=== PATIENT | female | born 1985 | race Caucasian/White ===

== ENCOUNTER → 2016-12-27 | Outpatient (CLI) | payer OTHER ==
[~2016-12-27] MED LIST: APIX5TAB PO; BACT800T5 PO; BENZ100 PO; DIFL150T PO; GLIP10TA6 PO; GLUCTES27 TOP; LEVEMIR SQ; LISI-515 PO; METF1000 PO; PROV5TAB PO; insulin syringes SQ
[2016-12-27 13:25] LABS: AUTOMATED NEUTROPHIL # 8.6 TH/MM3 (1.8-7.7); BASOPHIL # 0.1 TH/MM3 (0-0.2); BASOPHIL % 0.7 % (0.0-2.0); EOSINOPHIL # 0.3 TH/MM3 (0-0.4); EOSINOPHIL % 2.1 % (0.0-4.0); HEMATOCRIT 41.4 % (35.0-46.0); HEMO FLAGS DIFF FINAL; LYMPH % 23.7 % (9.0-44.0); MEAN CELL VOLUME 83.9 FL (80.0-100.0); MEAN CORPUSCULAR HEMOGLOBIN 27.9 PG (27.0-34.0); MEAN CORPUSCULAR HGB CONC 33.2 % (32.0-36.0); NEUT % 67.5 % (16.0-70.0); PLATELET COUNT 306 TH/MM3 (150-450); RED BLOOD COUNT 4.94 MIL/MM3 (4.00-5.30); WHITE BLOOD COUNT 12.8 TH/MM3 (4.0-11.0)
== END ==
LOC: CLAB 13:03
PROVIDERS: ATTEND Family Medicine
DX: N92.1 Excessive and frequent menstruation with irregular cycle (principal)
CPT/HCPCS: 36415; 85025

== ENCOUNTER → 2016-12-30 | Outpatient (CLI) | payer OTHER ==
[~2016-12-30] MED LIST changes: -BACT800T5 PO; -BENZ100 PO; -DIFL150T PO
--- NOTE | 2016-12-30 16:43 | RADRPT ---
EXAM DATE/TIME: 12/30/2016 14:46 [facility] COMPARISON: No previous studies available for comparison. INDICATIONS : Vaginal bleeding. MEDICAL HISTORY : Hypercholesterolemia. Deep venous thrombosis. Diabetes mellitus type 2. Morbidly obese. SURGICAL HISTORY : Cyst taken off buttock. ENCOUNTER: Initial ACUITY: 2 months PAIN SCORE: 4/10 LOCATION: Bilateral pelvis MEASUREMENTS: UTERUS: 8.0 x 4.2 x 4.8 cm ENDOMETRIAL STRIPE: 10 mm RIGHT OVARY: 4.3 x 4.0 x 4.8 cm LEFT OVARY: 3.2 x 1.8 x 2.7 cm FINDINGS: The examination was extremely limited due to bowel gas and obesity. UTERUS: The myometrium has homogeneous echotexture without mass. RIGHT OVARY: The examination demonstrates a 2.7 x 3.2 x 3.4 cm cyst in the mid aspect of the right ovary. LEFT OVARY: Ovary contains no mass or significant cystic lesion. MISCELLANEOUS: No free fluid. CONCLUSION: 1. 2.7 x 3.2 x 3.4 cm ovarian cyst on the right. 2. The uterus and left ovary are normal appearance. Brandon Killian MD on December 30, 2016 at 16:39 Board Certified Radiologist. This report was verified electronically.
== END ==
LOC: HRAD 14:07
PROVIDERS: ATTEND Family Medicine
DX: N92.1 Excessive and frequent menstruation with irregular cycle (principal)
CPT/HCPCS: 76856

== ENCOUNTER → 2017-02-09 | Outpatient (CLI) | payer OTHER ==
[2017-02-09 11:57] LABS: HEMATOCRIT 39.6 % (35.0-46.0); MEAN CELL VOLUME 84.6 FL (80.0-100.0); MEAN CORPUSCULAR HGB CONC 31.9 % (32.0-36.0); PLATELET COUNT 332 TH/MM3 (150-450); RED BLOOD COUNT 4.68 MIL/MM3 (4.00-5.30); RED CELL DISTRIBUTION WIDTH 15.2 % (11.6-17.2); REVIEW FLAG FINAL; WHITE BLOOD COUNT 14.6 TH/MM3 (4.0-11.0)
== END ==
LOC: CLAB 11:36
PROVIDERS: ATTEND Family Medicine
DX: N92.1 Excessive and frequent menstruation with irregular cycle (principal)
CPT/HCPCS: 36415; 85027

== ENCOUNTER → 2017-07-03 | Outpatient (CLI) | payer OTHER ==
[~2017-07-03] MED LIST changes: +DIFL150T PO
[2017-07-03 12:28] LABS: BASOPHIL # 0.1 TH/MM3 (0-0.2); BASOPHIL % 0.6 % (0.0-2.0); EOSINOPHIL # 0.3 TH/MM3 (0-0.4); HEMATOCRIT 40.1 % (35.0-46.0); HEMO FLAGS DIFF FINAL; LYMPH % 25.6 % (9.0-44.0); LYMPHOCYTE # 2.8 TH/MM3 (1.0-4.8); MEAN CELL VOLUME 78.5 FL (80.0-100.0); MEAN CORPUSCULAR HGB CONC 30.6 % (32.0-36.0); MONO % 6.3 % (0.0-8.0); NEUT % 64.5 % (16.0-70.0); PLATELET COUNT 348 TH/MM3 (150-450); RED BLOOD COUNT 5.11 MIL/MM3 (4.00-5.30); RED CELL DISTRIBUTION WIDTH 17.7 % (11.6-17.2); WHITE BLOOD COUNT 10.9 TH/MM3 (4.0-11.0)
[2017-07-03 12:47] LABS: ANION GAP 10 MEQ/L (5-15); AST (GOT) 7 U/L (15-37); BICARBONATE 24.5 MEQ/L (21.0-32.0); BLOOD UREA NITROGEN 11 MG/DL (7-18); CHLORIDE 104 MEQ/L (98-107); GLOMERULAR FILTRATION RATE 105 ML/MIN (>89); GLUCOSE,FASTING 265 MG/DL (74-99); POTASSIUM 4.5 MEQ/L (3.5-5.1); SODIUM (NA) 138 MEQ/L (136-145)
[2017-07-03 12:48] LABS: ALT (GPT) 23 U/L (10-53)
[2017-07-03 12:50] LABS: ALKALINE PHOSPHATASE 56 U/L (45-117); HDL CHOLESTEROL 30.3 MG/DL (40.0-60.0); LDL CHOLESTEROL 84 MG/DL (0-99); TOTAL BILIRUBIN ADULT 0.2 MG/DL (0.2-1.0)
[2017-07-03 16:59] LABS: HEMOGLOBIN A1a 1.2 %; HEMOGLOBIN A1b 1.1 %; HEMOGLOBIN Ao 76.9 %; HEMOGLOBIN F 1.7 %; HEMOGLOBIN LA1C 3.1 %; HEMOGLOBIN P3 4.7 %
== END ==
LOC: CLAB 12:00
PROVIDERS: ATTEND Family Medicine
DX: N92.1 Excessive and frequent menstruation with irregular cycle (principal); E66.01 Morbid (severe) obesity due to excess calories; H11.32 Conjunctival hemorrhage, left eye; E11.65 Type 2 diabetes mellitus with hyperglycemia; Z91.19 Patient's noncompliance with other medical treatment and regimen
CPT/HCPCS: 36415; 80053; 80061; 83036; 85025

== ENCOUNTER 2017-11-25 00:10 | Emergency (ER) | payer SELFPAY ==
[~2017-11-25] VITALS: Ht 167.6 cm; Wt 156.6 kg
[~2017-11-25 00:10] MED LIST changes: -PROV5TAB PO
[2017-11-25 00:45] VITALS: BP 173/77; PULSE 103; RESP 20; TEMP 97.8
[2017-11-25 01:10] VITALS: BP 163/88; PULSE 103; RESP 20; O2SAT 95
[2017-11-25 02:28] VITALS: BP 158/89; PULSE 105; RESP 20; O2SAT 92
--- NOTE | 2017-11-25 02:43 | PD ---
HPI Chief Complaint: Cold / Flu Symptoms Time Seen by Provider: 02:28 Travel History International Travel<30 days: No Contact w/Intl Traveler<30days: No Traveled to known affect area: No History of Present Illness HPI The patient is a 32-year-old female who has had a cough and congestion for one week. The cough is productive of clear sputum. She states she had a fever for the first 2 days, low grade 101. She does smoke one half pack a day. She states there is no possibility of . She denies any chest pain. PFSH Past Medical History Arthritis: No Asthma: No Autoimmune Disease: No Blood Disorders: No Anxiety: Yes Depression: Yes Heart Rhythm Problems: No Cancer: No Cardiovascular Problems: Yes High Cholesterol: Yes Chemotherapy: No Chest Pain: Yes Congestive Heart Failure: No COPD: No Diabetes: Yes (TYPE 2) Patient Takes Glucophage: No Diminished Hearing: No Endocrine: No Gastrointestinal Disorders: No Genitourinary: No Hypertension: Yes Immune Disorder: No Musculoskeletal: No Neurologic: No Psychiatric: Yes Reproductive: No Respiratory: Yes (PE BILAT X2) Immunizations Current: No Myocardial Infarction: No Radiation Therapy: No (PT DENIES) Sleep Apnea: No (PT DENIES) Thyroid Disease: No Tetanus Vaccination: Unknown Influenza Vaccination: No ?: Not LMP: 11/07/17 : 1 : 1 Past Surgical History Abdominal Surgery: No AICD: No Arteriovenous Shunt: No Cardiac Surgery: No Ear Surgery: No Endocrine Surgery: No Eye Surgery: No Genitourinary Surgery: No Gynecologic Surgery: No Insulin Pump: No Joint Replacement: No Neurologic Surgery: No Oral Surgery: No Pacemaker: No Thoracic Surgery: No Other Surgery: Yes (CYST TAKEN OFF BUTTOCK) Social History Alcohol Use: No Tobacco Use: Yes (11/14 PPD) Substance Use: No Allergies-Medications (Allergen,Severity, Reaction): Coded Allergies: No Known Allergies (Verified Adverse Reaction, Unknown, 11/25/17) Reported Meds & Prescriptions Reported Meds & Active Scripts Active Lisinopril 20 Mg Tab 20 Mg PO DAILY Glipizide 10 Mg Tab 20 Mg PO BIDAC Take 30 minutes before a meal Diflucan (Fluconazole) 150 Mg Tab 150 Mg PO ONCE Eliquis (Apixaban) 5 Mg Tab 5 Mg PO BID Metformin (Metformin HCl) 1,000 Mg Tab 1,000 Mg PO BIDPC With meals Levemir Inj (Insulin Detemir) 1,000 unit/ 10 ML Vial 60 Units SQ BID 30 Days Do not mix with any other Insulin. Gloria Contour Next Blood Test Strips (Blood Glucose Test Strips) 1 Taylor Taylor 1 Strip TOP BID [insulin syringes] 1 Syringe SQ BID Review of Systems Except as stated in HPI: all other systems reviewed are Neg Physical Exam Narrative GENERAL: The patient is alert, obese, oriented 3 in no respiratory distress. Her vital signs show blood pressure 163/88 with heart rate of 103 but otherwise are normal. SKIN: Focused skin assessment warm/dry. HEAD: Atraumatic. Normocephalic. EYES: Pupils equal and round. No scleral icterus. No injection or drainage. ENT: No nasal bleeding or discharge. Mucous membranes pink and moist. NECK: Trachea midline. No JVD. CARDIOVASCULAR: Regular rate and rhythm. No murmur appreciated. RESPIRATORY: No accessory muscle use. Clear to auscultation. Breath sounds equal bilaterally. GASTROINTESTINAL: Abdomen soft, non-tender, nondistended. Hepatic and splenic margins not palpable. MUSCULOSKELETAL: No obvious deformities. No clubbing. No cyanosis. No edema. NEUROLOGICAL: Awake and alert. No obvious cranial nerve deficits. Motor grossly within normal limits. Normal speech. PSYCHIATRIC: Appropriate mood and affect; insight and judgment normal. Data Data Last Documented VS Vital Signs Date Time Temp Pulse Resp B/P (MAP) Pulse Ox O2 Delivery O2 Flow Rate FiO2 11/25/17 02:28 105 20 158/89 (112) 92 Room Air 11/25/17 00:45 97.8 Orders Orders Chest, Pa & Lat (11/25/17 02:35) Influenzae A/B Antigen (11/25/17 02:47) MDM Medical Decision Making Medical Screen Exam Complete: Yes Emergency Medical Condition: Yes Medical Record Reviewed: Yes Interpretation(s) The PA and lateral chest x-ray is normal. The influenza a/B antigen is negative for flu a and flu B antigen. Differential Diagnosis Viral upper respiratory infection, pneumonia, bronchitis, flu syndrome Narrative Course The patient appears to have a viral upper respiratory infection. Plan: She should discontinue smoking, drink plenty of liquids and get as much rest as she can. She should follow-up with a primary care physician next week. Additional Instructions: Follow-up with a primary care physician next week. Discontinue smoking and get as much rest as you can. Med/Other Pt SpecificInfo: Prescription(s) given Scripts Guaifenesin-Codeine Liq (Guaiatussin AC Liq) 100-10 Mg/5 Ml Syrp 10 ML PO Q6H Y for cough, #180 ML Prov: Miguelito Brown MD 11/25/17 Disposition: 01 DISCHARGE HOME Condition: Stable Miguelito Brown MD Nov 25, 2017 02:43
--- NOTE | 2017-11-25 02:58 | RADRPT ---
EXAM DATE/TIME: 11/25/2017 02:41 [facility] COMPARISON: No previous studies available for comparison. INDICATIONS : Cough. MEDICAL HISTORY : Hypercholesterolemia. Deep venous thrombosis. Diabetes mellitus type 2. Morbidly obese SURGICAL HISTORY : None. ENCOUNTER: Initial ACUITY: 1 week PAIN SCORE: 2/10 LOCATION: Bilateral chest FINDINGS: PA and lateral views of the chest demonstrate the lungs to be symmetrically aerated without evidence of mass, infiltrate or effusion. The cardiomediastinal contours are unremarkable. Osseous structure s are intact. CONCLUSION: Normal examination for a patient of this age. Dashawn Ortez MD on November 25, 2017 at 2:55 Board Certified Radiologist. This report was verified electronically.
[2017-11-25] MEDS ORDERED: GUAISYP5 PO (03:25)
[2017-11-25 03:30] VITALS: BP 170/81
== END 2017-11-25 03:39 | disposition home or self-care (01) ==
LOC: PHED 00:10
DX: J06.9 Acute upper respiratory infection, unspecified (principal); R05 Cough; F17.210 Nicotine dependence, cigarettes, uncomplicated; E78.00 Pure hypercholesterolemia, unspecified; E11.9 Type 2 diabetes mellitus without complications; I10 Essential (primary) hypertension; Z79.01 Long term (current) use of anticoagulants
CPT/HCPCS: 71046; 87804; 99284

== ENCOUNTER 2017-12-17 20:14 | Emergency (ER) | payer SELFPAY ==
[~2017-12-17] VITALS: Ht 167.6 cm; Wt 153.5 kg
[~2017-12-17 20:14] MED LIST changes: +GUAISYP5 PO
[2017-12-17 20:25] VITALS: BP 160/82; PULSE 109; RESP 18; TEMP 98.9; O2SAT 95
[2017-12-17] MEDS ORDERED: BACT800T5 PO (20:52)
[2017-12-17] MEDS ORDERED: CEPH-460 PO (20:52)
--- NOTE | 2017-12-17 20:53 | PD ---
HPI Chief Complaint: Skin Problem Time Seen by Provider: 20:39 Travel History International Travel<30 days: No Contact w/Intl Traveler<30days: No Traveled to known affect area: No History of Present Illness HPI This is a 32-year-old female here with abscess to the left lower abdomen 3 days. She denies fever or chills. Patient has a history of abscesses in the past. Symptom severity is moderate. No aggravating or alleviating factors. PFSH Past Medical History Hx Anticoagulant Therapy: No (suppose to be on but stoped taking) Arthritis: No Asthma: No Autoimmune Disease: No Blood Disorders: No Anxiety: Yes Depression: Yes Heart Rhythm Problems: No Cancer: No Cardiovascular Problems: Yes High Cholesterol: Yes Chemotherapy: No Chest Pain: Yes Congestive Heart Failure: No COPD: No Diabetes: Yes (TYPE 2) Patient Takes Glucophage: No Diminished Hearing: No Endocrine: No Gastrointestinal Disorders: No Genitourinary: No Hypertension: Yes Immune Disorder: No Musculoskeletal: No Neurologic: No Psychiatric: Yes Reproductive: No Respiratory: Yes (PE x2) Immunizations Current: No Myocardial Infarction: No Radiation Therapy: No (PT DENIES) Sleep Apnea: No (PT DENIES) Thyroid Disease: No Tetanus Vaccination: Unknown Influenza Vaccination: No ?: Not LMP: 2--18 : 1 : 1 Past Surgical History Abdominal Surgery: No AICD: No Arteriovenous Shunt: No Cardiac Surgery: No Ear Surgery: No Endocrine Surgery: No Eye Surgery: No Genitourinary Surgery: No Gynecologic Surgery: No Insulin Pump: No Joint Replacement: No Neurologic Surgery: No Oral Surgery: No Pacemaker: No Thoracic Surgery: No Other Surgery: Yes (CYST TAKEN OFF BUTTOCK) Social History Alcohol Use: No Tobacco Use: Yes (1/2 PPD) Substance Use: No Allergies-Medications (Allergen,Severity, Reaction): Coded Allergies: No Known Allergies (Verified Adverse Reaction, Unknown, 12/17/17) Reported Meds & Prescriptions Reported Meds & Active Scripts Active No Active Prescriptions or Reported Medications Review of Systems Except as stated in HPI: all other systems reviewed are Neg General / Constitutional: No: Fever Physical Exam Narrative GENERAL: Alert and well-appearing 32-year-old female SKIN: Warm and dry. 6 x 5 cm area to left lower abdomen of erythema and mild induration. Area has a central scab. No drainage. HEAD: Normocephalic. EYES: No injection or drainage. NECK: Supple CARDIOVASCULAR: Regular rate and rhythm without murmurs, gallops, or rubs. RESPIRATORY: Breath sounds equal bilaterally. No accessory muscle use. GASTROINTESTINAL: Abdomen soft, non-tender, nondistended. MUSCULOSKELETAL: No cyanosis, or edema. Data Data Last Documented VS Vital Signs Date Time Temp Pulse Resp B/P (MAP) Pulse Ox O2 Delivery O2 Flow Rate FiO2 12/17/17 20:25 98.9 109 18 160/82 (108) 95 MDM Medical Decision Making Medical Screen Exam Complete: Yes Emergency Medical Condition: Yes Differential Diagnosis Abscess, cellulitis, folliculitis Narrative Course 32-year-old female here with early abscess to the left lower abdomen. The area is indurated with central scab. No fluctuance. Incision and drainage was not warranted. She is nontoxic appearing. She'll be put on Bactrim and Keflex and instructed to apply warm compresses to the area. Diagnosis Primary Impression: Abscess Referrals: Primary Care Physician Additional Instructions: Apply warm compresses to the area several times per day. Follow-up with her primary doctor for recheck. Return if he developed acutely new or worsening symptoms Scripts Cephalexin (Keflex) 500 Mg Cap 500 MG PO Q6H for Infection for 10 Days, #40 CAP 0 Refills Prov: Yamel Lowe 12/17/17 Sulfamethoxazole-Trimethoprim (Bactrim DS) 800-160 Mg Tab 1 TAB PO BID for Infection, #20 TAB 0 Refills Prov: Yamel Lowe 12/17/17 Disposition: 01 DISCHARGE HOME Condition: Stable Yamel Lowe Dec 17, 2017 20:53
== END 2017-12-17 21:03 | disposition home or self-care (01) ==
LOC: PHEFT 20:14
DX: L02.211 Cutaneous abscess of abdominal wall (principal); F17.200 Nicotine dependence, unspecified, uncomplicated; F41.9 Anxiety disorder, unspecified; F32.9 Major depressive disorder, single episode, unspecified; E78.00 Pure hypercholesterolemia, unspecified; E11.9 Type 2 diabetes mellitus without complications; I10 Essential (primary) hypertension; Z86.711 Personal history of pulmonary embolism
CPT/HCPCS: 99283

== ENCOUNTER 2018-03-27 09:28 | Observation (INO) | payer SELFPAY ==
[2018-03-27] VITALS (7 sets, daily range): BP systolic 111–136; BP diastolic 56–83; PULSE 91–121; RESP 16–24; TEMP 97.8–98.6; O2SAT 95–100
[~2018-03-27] VITALS: Ht 167.6 cm; Wt 152.2 kg
[~2018-03-27 09:28] MED LIST changes: -APIX5TAB PO; +BACT800T5 PO; +CEPH-460 PO; -DIFL150T PO; -GLIP10TA6 PO; -GLUCTES27 TOP; -GUAISYP5 PO; -LEVEMIR SQ; -LISI-515 PO; -METF1000 PO; -insulin syringes SQ
[2018-03-27 10:55] LABS: AUTOMATED NEUTROPHIL # 13.1 TH/MM3 (1.8-7.7); BASOPHIL # 0.1 TH/MM3 (0-0.2); BASOPHIL % 0.6 % (0.0-2.0); EOSINOPHIL # 0.1 TH/MM3 (0-0.4); EOSINOPHIL % 0.6 % (0.0-4.0); HEMATOCRIT 46.3 % (35.0-46.0); HEMOGLOBIN 15.4 GM/DL (11.6-15.3); LYMPH % 18.6 % (9.0-44.0); LYMPHOCYTE # 3.3 TH/MM3 (1.0-4.8); MEAN CELL VOLUME 84.1 FL (80.0-100.0); MEAN CORPUSCULAR HGB CONC 33.3 % (32.0-36.0); MEAN PLATELET VOLUME 7.4 FL (7.0-11.0); MONO % 7.2 % (0.0-8.0); MONOCYTE # 1.3 TH/MM3 (0-0.9); PLATELET COUNT 271 TH/MM3 (150-450); RED CELL DISTRIBUTION WIDTH 13.9 % (11.6-17.2)
[2018-03-27 11:10] LABS: INTERNATIONAL NORMALIZED RATIO 1.1 RATIO; PROTHROMBIN TIME - PATIENT 10.9 SEC (9.8-11.6)
[2018-03-27 11:38] LABS: ALBUMIN 3.4 GM/DL (3.4-5.0); BLOOD UREA NITROGEN 10 MG/DL (7-18); CREATININE 0.78 MG/DL (0.50-1.00); GLOMERULAR FILTRATION RATE 85 ML/MIN (>89); GLUCOSE,RANDOM 369 MG/DL (74-106); TOTAL PROTEIN 7.6 GM/DL (6.4-8.2)
[2018-03-27 11:39] LABS: ALKALINE PHOSPHATASE 76 U/L (45-117); ALT (GPT) 21 U/L (10-53); AST (GOT) 6 U/L (15-37); BICARBONATE 29.4 MEQ/L (21.0-32.0); CALCIUM 9.2 MG/DL (8.5-10.1); CHLORIDE 99 MEQ/L (98-107); SODIUM (NA) 133 MEQ/L (136-145); TOTAL BILIRUBIN ADULT 0.6 MG/DL (0.2-1.0)
[2018-03-27] MEDS ORDERED: SODIUM CHLOR 0.9% 1000 ML INJ 1,000 ML IV ONE (12:45)
--- NOTE | 2018-03-27 12:55 | RADRPT ---
EXAM DATE/TIME: 03/27/2018 12:01 [facility] COMPARISON: No previous studies available for comparison. INDICATIONS : Soft tissue mass on back of head denies injury,swelling right lower head. RADIATION DOSE: 56.35 CTDIvol (mGy) MEDICAL HISTORY : Hypertension. Deep venous thrombosis. Diabetes SURGICAL HISTORY : None. ENCOUNTER: Initial ACUITY: 2 days PAIN SCALE: 8/10 LOCATION: cranial TECHNIQUE: Multiple contiguous axial images were obtained of the head. Using automated exposure control and adj ustment of the mA and/or kV according to patient size, radiation dose was kept as low as reasonably a chievable to obtain optimal diagnostic quality images. DICOM format image data is available electro nically for review and comparison. FINDINGS: CEREBRUM: The ventricles are normal for age. No evidence of midline shift, mass lesion, hemorrhage or acute in farction. No extra-axial fluid collections are seen. POSTERIOR FOSSA: The cerebellum and brainstem are intact. The 4th ventricle is midline. The cerebellopontine angle i s unremarkable. EXTRACRANIAL: Subcutaneous fat induration is identified posteriorly at the base of the skull there are no abnormal or organized fluid collections.. The visualized portion of the orbits is intact. SKULL: The calvaria is intact. No evidence of skull fracture. CONCLUSION: Subcutaneous fat induration at the base of the neck posteriorly which may represent an inflammatory p rocess. No evidence of acute intracranial process. Tomas Heck MD on March 27, 2018 at 12:51 Board Certified Radiologist. This report was verified electronically.
--- NOTE | 2018-03-27 12:59 | PD ---
HPI Chief Complaint: Lump, Cyst, Hernia Time Seen by Provider: 10:09 Travel History International Travel<30 days: No Contact w/Intl Traveler<30days: No Traveled to known affect area: No History of Present Illness HPI Patient presents to the emergency department complaint of swelling in the back of her head since yesterday morning. She denies trauma or hitting her head. She denies fever, chills, nausea, vomiting, vision change, numbness, tingling, rash. She reports headache and neck pain. History Past Medical History Influenza Vaccination: Yes LMP: 03/20/18 : 1 Social History Alcohol Use: No Tobacco Use: Yes (11/14 PPD) Allergies-Medications (Allergen,Severity, Reaction): Coded Allergies: No Known Allergies (Verified Adverse Reaction, Unknown, 03/27/18) Reported Meds & Prescriptions Reported Meds & Active Scripts Active No Active Prescriptions or Reported Medications Review of Systems Except as stated in HPI: all other systems reviewed are Neg Physical Exam Narrative GENERAL: No acute distress. SKIN: Focused skin assessment warm/dry. HEAD: Atraumatic. Normocephalic. EYES: Pupils equal and round. No scleral icterus. No injection or drainage. ENT: No nasal bleeding or discharge. Mucous membranes pink and moist. NECK: Trachea midline. No JVD. Supple full range of motion peer. Large mass right posterior neck-tender to palpation with surrounding erythema. CARDIOVASCULAR: Regular rate and rhythm. No murmur appreciated. RESPIRATORY: No accessory muscle use. Clear to auscultation. Breath sounds equal bilaterally. GASTROINTESTINAL: Abdomen soft, non-tender, obese. Hepatic and splenic margins not palpable. MUSCULOSKELETAL: No obvious deformities. No clubbing. No cyanosis. No edema. NEUROLOGICAL: Awake and alert. No obvious cranial nerve deficits. Motor grossly within normal limits. Normal speech. PSYCHIATRIC: Appropriate mood and affect; insight and judgment normal. Data Data Last Documented VS Vital Signs Date Time Temp Pulse Resp B/P (MAP) Pulse Ox O2 Delivery O2 Flow Rate FiO2 03/27/18 12:26 97.8 117 16 122/68 (86) 99 Room Air Orders Orders Complete Blood Count With Diff (03/27/18 10:15) Comprehensive Metabolic Panel (03/27/18 10:15) Prothrombin Time / Inr (Pt) (03/27/18 10:15) Act Partial Throm Time (Ptt) (03/27/18 10:15) Ct Soft Tiss Neck W Iv Cont (03/27/18 10:15) Ct Brain W/O Iv Contrast(Rout) (03/27/18 10:16) Sodium Chlor 0.9% 1000 Ml Inj (Ns 1000 M (03/27/18 12:45) Piperacil-Tazo 3.375 Gm Premix (Zosyn 3. (03/27/18 13:30) Vancomycin Inj (Vancomycin Inj) (03/27/18 13:30) Insulin Human Regular Inj (Novolin R Inj (03/27/18 13:30) Admit Order (Ed Use Only) (03/27/18 13:37) Labs Laboratory Tests Test 03/27/18 10:33 White Blood Count 18.0 TH/MM3 Red Blood Count 5.50 MIL/MM3 Hemoglobin 15.4 GM/DL Hematocrit 46.3 % Mean Corpuscular Volume 84.1 FL Mean Corpuscular Hemoglobin 28.0 PG Mean Corpuscular Hemoglobin Concent 33.3 % Red Cell Distribution Width 13.9 % Platelet Count 271 TH/MM3 Mean Platelet Volume 7.4 FL Neutrophils (%) (Auto) 73.0 % Lymphocytes (%) (Auto) 18.6 % Monocytes (%) (Auto) 7.2 % Eosinophils (%) (Auto) 0.6 % Basophils (%) (Auto) 0.6 % Neutrophils # (Auto) 13.1 TH/MM3 Lymphocytes # (Auto) 3.3 TH/MM3 Monocytes # (Auto) 1.3 TH/MM3 Eosinophils # (Auto) 0.1 TH/MM3 Basophils # (Auto) 0.1 TH/MM3 CBC Comment DIFF FINAL Differential Comment Prothrombin Time 10.9 SEC Prothromb Time International Ratio 1.1 RATIO Activated Partial Thromboplast Time 24.4 SEC Blood Urea Nitrogen 10 MG/DL Creatinine 0.78 MG/DL Random Glucose 369 MG/DL Total Protein 7.6 GM/DL Albumin 3.4 GM/DL Calcium Level 9.2 MG/DL Alkaline Phosphatase 76 U/L Aspartate Amino Transf (AST/SGOT) 6 U/L Alanine Aminotransferase (ALT/SGPT) 21 U/L Total Bilirubin 0.6 MG/DL Sodium Level 133 MEQ/L Potassium Level 4.3 MEQ/L Chloride Level 99 MEQ/L Carbon Dioxide Level 29.4 MEQ/L Anion Gap 5 MEQ/L Estimat Glomerular Filtration Rate 85 ML/MIN MDM Medical Decision Making Medical Screen Exam Complete: Yes Emergency Medical Condition: Yes Interpretation(s) Last Impressions Head CT 03/27/18 1016 Signed Impressions: Service Date/Time: Tuesday, March 27, 2018 12:01 - CONCLUSION: Subcutaneous fat induration at the base of the neck posteriorly which may represent an inflammatory process. No evidence of acute intracranial process. Tomas Heck MD Neck CT 03/27/18 1015 Signed Impressions: Service Date/Time: Tuesday, March 27, 2018 12:01 - CONCLUSION: Subcutaneous fat induration posteriorly on the right side of the neck with evidence of underlying reactive lymph nodes characteristic of cellulitis. No evidence of discrete abscess. Otherwise normal brain soft tissue structures of the neck. Tomas Heck MD Labs limited WBC, hemoglobin, hematocrit, glucose Differential Diagnosis Hematoma,abscess, lipoma, Narrative Course Patient presents to the emergency department with neck mass. Also states that sugars are difficult to control will check CBC, chemistry, coags, CT scan head and neck. Give IV fluids. 1326: Written for 1 g of vancomycin and 3.375 g Zosyn IV. Accu-Chek 318, will give 9 units insulin SQ. Diagnosis Primary Impression: Cellulitis Qualified Codes: L03.221 - Cellulitis of neck Additional Impression: Hyperglycemia Admitting Information Admitting Physician Requests: Admit Scripts No Active Prescriptions or Reported Meds Condition: Stable Coty Wood MD March 27, 2018 12:59
--- NOTE | 2018-03-27 13:06 | RADRPT ---
EXAM DATE/TIME: 03/27/2018 12:01 [facility] COMPARISON: No previous studies available for comparison. INDICATIONS : Mass on the back of head for two days,swelling right lower head IV CONTRAST: 61 cc Omnipaque 350 (iohexol) IV RADIATION DOSE: 31.56 CTDIvol (mGy) MEDICAL HISTORY : Hypertension. Deep venous thrombosis. Diabetes SURGICAL HISTORY : None. ENCOUNTER: Initial ACUITY: 2 days PAIN SCALE: 8/10 LOCATION: Right neck TECHNIQUE: Volumetric scanning of the neck was performed. Using automated exposure control and adjustment of th e mA and/or kV according to patient size, radiation dose was kept as low as reasonably achievable to obtain optimal diagnostic quality images. DICOM format image data is available electronically for r eview and comparison. FINDINGS: Subcutaneous fat induration is identified posteriorly in the neck extending from the base of the skul l to the base of the neck. Soft tissue nodules are identified within the fat characteristic of small lymph nodes. There is no evidence of mature or discrete fluid collections. NASOPHARYNX: The nasopharyngeal airway has a normal configuration. No mucosal thickening or mass is seen. OROPHARYNX: The intrinsic muscles of the tongue are symmetric. The tonsillar pillars are intact. The prevertebr al soft tissues are not thickened. LARYNX: The supraglottic, glottic, and infraglottic structures are intact. PARAPHARYNGEAL: The parapharyngeal space is intact. SALIVARY GLANDS: The parotid and submandibular glands are intact. LYMPH NODES: No enlarged or necrotic-appearing nodes. THYROID: Homogeneous enhancement without evidence of nodule. BONES: Unremarkable. CONCLUSION: Subcutaneous fat induration posteriorly on the right side of the neck with evidence of underlying claudine ctive lymph nodes characteristic of cellulitis. No evidence of discrete abscess. Otherwise normal brain soft tissue structures of the neck. Tomas Heck MD on March 27, 2018 at 13:01 Board Certified Radiologist. This report was verified electronically.
[2018-03-27] MEDS ORDERED: PIPERACIL-TAZO 3.375 GM PREMIX 50 ML IV ONE (13:30)
[2018-03-27] MEDS ORDERED: VANCOMYCIN INJ 1,000 MG in SODIUM CHLOR 0.9% 250 ML INJ 250 ML IV ONE (13:30)
[2018-03-27] MEDS ORDERED: INSULIN HUMAN REGULAR 1,000 UNITS/10 ML VIAL SQ ONE (13:30)
--- NOTE | 2018-03-27 13:48 | HHI.HP ---
[facility] Service Family Medicine Primary Care Physician No Primary Care Physician Admission Diagnosis hyperglycemia, cellulitis Diagnoses: International Travel<30 Days: No Contact w/Intl Traveler<30days: No Known Affected Area: No History of Present Illness Patient is a 32-year-old female with a past medical history of diabetes and pulmonary embolisms 2 that presented to the [place] ED with a chief complaint of neck pain and swelling 1 day duration. Patient states that she woke up yesterday morning with a bump on the back of her neck and by this morning it was very painful and felt warm. Patient states that she can turn her head to the left but not to the right due to pain. She did not go to work yesterday because she had a headache. She denies fever, chills, vision loss, blurry vision, ear pain, numbness and tingling down her arms. Her PCP was Dr. Gonzalez, who was managing her medications and treatment, but she stopped taking any medications for chronic conditions when the community clinic closed. (Oumou Garcia MD R2) Review of Systems Constitutional: DENIES: Fever, Chills, Dizziness, Change in appetite Eyes: DENIES: Blurred vision, Eye pain, Vision loss, Double Vision Ears, nose, mouth, throat: DENIES: Throat pain, Ear Pain, Sinus Pain Respiratory: DENIES: Cough, Shortness of breath Cardiovascular: DENIES: Chest pain, Palpitations Gastrointestinal: DENIES: Constipation, Diarrhea, Nausea, Vomiting Genitourinary: DENIES: Dysuria, Vaginal discharge Musculoskeletal: COMPLAINS OF: Neck pain, DENIES: Joint pain, Back pain Integumentary: DENIES: Pruritus, Rash Neurologic: COMPLAINS OF: Headache, DENIES: Paresthesias Psychiatric: DENIES: Anxiety, Confusion, Mood changes, Depression (Oumou Garcia MD R2) Past Family Social History Past Medical History -Type 2 diabetes diagnosed when she was hospitalized for PE at [facility] in 2010. * She was started on metformin and was eventually put on insulin but she did not think that it helped control her sugars and she started having reactions at the injection sites on her leg and stomach. -Hypertension * Was on lisinopril but she stopped taking it -Pulmonary embolism 2, first in 2010 when she was 25 years old and the second in 2013 * Patient was on Eliquis but stopped taking it when the community clinic closed * She has never been worked up for a bleeding/clotting disorder. Past Surgical History -Pilonidal cyst outpatient surgery in 2006 Reported Medications Reported Meds & Active Scripts Active No Active Prescriptions or Reported Medications (Oumou Garcia MD R2) Allergies: Coded Allergies: No Known Allergies (Verified Adverse Reaction, Unknown, 03/27/18) Family History -Maternal grandmother had a myocardial infarction/CABG -Maternal grandfather had multiple strokes -No family history of diabetes or hypertension -No family history of blood clots/bleeding disorder Social History -Has smoked a half pack to a pack a day 18 years -Denies alcohol use -Denies illicit drug use -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 SKIN: No rashes. Cool and dry. See neck exam below. HEAD: Atraumatic. Normocephalic. No temporal or scalp tenderness. NECK: Right posterior neck mass measuring 11 cm x 7.5 cm with a 0.3 cm black eschar in the center, exquisitely tender to palpation. Patient unable to move neck to the right due to pain. EYES: Pupils equal round and reactive. Extraocular motions intact. No scleral icterus. No injection or drainage. ENT: Nose without bleeding, purulent drainage or septal hematoma. Throat without erythema, tonsillar hypertrophy or exudate. Uvula midline. Airway patent. NECK: Trachea midline. No JVD or lymphadenopathy. Supple, nontender, no meningeal signs. CARDIOVASCULAR: Regular rate and rhythm without murmurs, gallops, or rubs. RESPIRATORY: Clear to auscultation. Breath sounds equal bilaterally. No wheezes , rales, or rhonchi. GASTROINTESTINAL: Abdomen soft, non-tender, obese, nondistended. No guarding. MUSCULOSKELETAL: Extremities without clubbing, cyanosis, or edema. No joint tenderness, effusion, or edema noted. No calf tenderness. NEUROLOGICAL: Awake and alert. Cranial nerves II through XII intact. Motor and sensory grossly within normal limits. Five out of 5 muscle strength in all muscle groups. Normal speech. Laboratory Laboratory Tests Test 03/27/18 10:33 White Blood Count 18.0 Red Blood Count 5.50 Hemoglobin 15.4 Hematocrit 46.3 Mean Corpuscular Volume 84.1 Mean Corpuscular Hemoglobin 28.0 Mean Corpuscular Hemoglobin Concent 33.3 Red Cell Distribution Width 13.9 Platelet Count 271 Mean Platelet Volume 7.4 Neutrophils (%) (Auto) 73.0 Lymphocytes (%) (Auto) 18.6 Monocytes (%) (Auto) 7.2 Eosinophils (%) (Auto) 0.6 Basophils (%) (Auto) 0.6 Neutrophils # (Auto) 13.1 Lymphocytes # (Auto) 3.3 Monocytes # (Auto) 1.3 Eosinophils # (Auto) 0.1 Basophils # (Auto) 0.1 CBC Comment DIFF FINAL Differential Comment Prothrombin Time 10.9 Prothromb Time International Ratio 1.1 Activated Partial Thromboplast Time 24.4 Blood Urea Nitrogen 10 Creatinine 0.78 Random Glucose 369 Total Protein 7.6 Albumin 3.4 Calcium Level 9.2 Alkaline Phosphatase 76 Aspartate Amino Transf (AST/SGOT) 6 Alanine Aminotransferase (ALT/SGPT) 21 Total Bilirubin 0.6 Sodium Level 133 Potassium Level 4.3 Chloride Level 99 Carbon Dioxide Level 29.4 Anion Gap 5 Estimat Glomerular Filtration Rate 85 (Eko,Oumou GUALLPA R2) Result Diagram: 03/27/18 1033 03/27/18 1033 Imaging Last Impressions Head CT 03/27/18 1016 Signed Impressions: Service Date/Time: Tuesday, March 27, 2018 12:01 - CONCLUSION: Subcutaneous fat induration at the base of the neck posteriorly which may represent an inflammatory process. No evidence of acute intracranial process. Tomas Heck MD Neck CT 03/27/18 1015 Signed Impressions: Service Date/Time: Tuesday, March 27, 2018 12:01 - CONCLUSION: Subcutaneous fat induration posteriorly on the right side of the neck with evidence of underlying reactive lymph nodes characteristic of cellulitis. No evidence of discrete abscess. Otherwise normal brain soft tissue structures of the neck. Tomas Heck MD Course In the ED, CT head and CT neck with performed which showed subcutaneous fat induration posteriorly on the right side with evidence of underlying reactive lymph nodes characteristic of cellulitis which may represent an inflammatory process. Patient was found to have an elevated white count and tachycardia. She was given 1 g of vancomycin and 3.375 g of Zosyn IV. Patient also received 1 L normal saline bolus in the ED. Accu-Chek was 318 and she was given 9 units of subcu regular insulin. (Oumou Garcia MD R2) Septic Shock Reassessment Septic shock perfusion: reassessment completed (Oumou Garcia MD R2) Caprini VTE Risk Assessment Caprini VTE Risk Assessment: No/Low Risk (score <= 1) (Oumou Garcia MD R2) Assessment and Plan Assessment and Plan Patient is a 32-year-old female admitted with right neck soft tissue swelling concerning for cellulitis. CT neck was performed with no abscess formation identified. She met sepsis criteria on admission with elevated white blood cell count and tachycardia with an identifiable source. Patient will be admitted on observation for management with IV antibiotics and fluids. Code Status Full code -Patient designated her sister and mom as her healthcare surrogates Discussed Condition With ED physician, Dr. Wood Family medicine attending, Dr. Fabian (Oumou Garcia MD R2) Problem List: (1) Sepsis due to cellulitis ICD Codes: L03.90 - Cellulitis, unspecified; A41.9 - Sepsis, unspecified organism Plan: Patient met sepsis criteria on admission with elevated WBC of 18 and tachycardia up to 121 with a known cellulitis source. -Afebrile on admission -Lactic acid pending -Blood cultures pending -Urinalysis with reflex culture pending PLAN -Continue Zosyn 3.375 g every 6 IV -Continue vancomycin 1.5 mg every 12 IV with pharmacy to assist with dosing -Continue normal saline at 200 mL per hour (2) Hyponatremia ICD Codes: E87.1 - Hypo-osmolality and hyponatremia Plan: -Sodium 133 on admission -Most likely hypovolemic -Currently on IV fluids, will monitor with repeat BMP in the a.m. -Order urine and serum osmolality if hyponatremia does not resolve (3) Poorly controlled diabetes mellitus ICD Codes: E11.65 - Type 2 diabetes mellitus with hyperglycemia Status: Chronic Plan: -Serum glucose 369 on BMP -Accu-Chek 318 -Received 9 units of regular insulin in the ED -Continue Accu-Cheks with sliding scale insulin -Start Levemir 5 mg subcu twice daily -Hemoglobin A1c pending -Lipid panel pending -Start lisinopril 5 mg p.o. daily (4) HTN (hypertension) ICD Codes: I10 - Essential (primary) hypertension Status: Chronic Plan: -Patient reports history of hypertension -Currently normotensive -Start lisinopril 5 mg p.o. daily due to diabetes (5) Smoking greater than 10 pack years ICD Codes: F17.210 - Nicotine dependence, cigarettes, uncomplicated Status: Chronic Plan: -Nicotine Patch 7mg, remove HS -Encourage to quit (6) FEN/DVT PPX/GI PPX/Nursing Orders Plan: Fluids: NS @ 200 mls/hr IV Electrolytes: Will monitor and replace as needed Nutrition: Diabetic diet, 2200 ADA DVT Prophylaxis: Bilateral SCDs, Lovenox 40mg daily GI Prophylaxis: None required Constipation prophylaxis: Pericolace 1 tab PO BID PRN Medications Tylenol 650 mg by mouth every 4 hours when necessary pain 1-10 or temperature greater than 100.4F Reglan 5 mg IV push every 6 hours when necessary nausea vomiting Percocet 325-5 mg 1 tab by mouth every 6 hours when necessary pain 5-7 Percocet 325-10 mg 1 tab by mouth every 6 hours when necessary pain 8-10 Vasotec 1.25 mg IV Q6h PRN SBP greater than 170 or DBP greater than 100 Ambien 10mg PO HS PRN Insomnia -Vitals Q4h -Monitor I's and O's -Activity OOB ad corina -Case management consult to assist with discharge disposition Disposition: Patient clearly stated that she did not want to stay in the hospital. Possible discharge tomorrow pending improvement in swelling on antibiotics. Patient will need case management assistance with procuring antibiotics and setting up primary care. (EkoOumou MD R2) Problem List: (1) Sepsis due to cellulitis ICD Codes: L03.90 - Cellulitis, unspecified; A41.9 - Sepsis, unspecified organism Plan: Patient met sepsis criteria on admission with elevated WBC of 18 and tachycardia up to 121 with a known cellulitis source. -Afebrile on admission -Lactic acid pending -Blood cultures pending -Urinalysis with reflex culture pending PLAN -Continue Zosyn 3.375 g every 6 IV -Continue vancomycin 1.5 mg every 12 IV with pharmacy to assist with dosing -Continue normal saline at 200 mL per hour (2) Hyponatremia ICD Codes: E87.1 - Hypo-osmolality and hyponatremia Plan: -Sodium 133 on admission -Most likely hypovolemic -Currently on IV fluids, will monitor with repeat BMP in the a.m. -Order urine and serum osmolality if hyponatremia does not resolve (3) Poorly controlled diabetes mellitus ICD Codes: E11.65 - Type 2 diabetes mellitus with hyperglycemia Status: Chronic Plan: -Serum glucose 369 on BMP -Accu-Chek 318 -Received 9 units of regular insulin in the ED -Continue Accu-Cheks with sliding scale insulin -Start Levemir 5 mg subcu twice daily -Hemoglobin A1c pending -Lipid panel pending -Start lisinopril 5 mg p.o. daily (4) HTN (hypertension) ICD Codes: I10 - Essential (primary) hypertension Status: Chronic Plan: -Patient reports history of hypertension -Currently normotensive -Start lisinopril 5 mg p.o. daily due to diabetes (5) Smoking greater than 10 pack years ICD Codes: F17.210 - Nicotine dependence, cigarettes, uncomplicated Status: Chronic Plan: -Nicotine Patch 7mg, remove HS -Encourage to quit (6) FEN/DVT PPX/GI PPX/Nursing Orders Plan: Fluids: NS @ 200 mls/hr IV Electrolytes: Will monitor and replace as needed Nutrition: Diabetic diet, 2200 ADA DVT Prophylaxis: Bilateral SCDs, Lovenox 40mg daily GI Prophylaxis: None required Constipation prophylaxis: Pericolace 1 tab PO BID PRN Medications Tylenol 650 mg by mouth every 4 hours when necessary pain 1-10 or temperature greater than 100.4F Reglan 5 mg IV push every 6 hours when necessary nausea vomiting Percocet 325-5 mg 1 tab by mouth every 6 hours when necessary pain 5-7 Percocet 325-10 mg 1 tab by mouth every 6 hours when necessary pain 8-10 Vasotec 1.25 mg IV Q6h PRN SBP greater than 170 or DBP greater than 100 Ambien 10mg PO HS PRN Insomnia -Vitals Q4h -Monitor I's and O's -Activity OOB ad corina -Case management consult to assist with discharge disposition Disposition: Patient clearly stated that she did not want to stay in the hospital. Possible discharge tomorrow pending improvement in swelling on antibiotics. Patient will need case management assistance with procuring antibiotics and setting up primary care. Patient has a long history of noncompliance in the past, from reviewing her medical records. See the residents documentation for details. I saw and evaluated the patient regarding the [place] portions of this evaluation and agree with the residents findings and plans as written. Parts of this note were created using [employer] voice recognition software program. While efforts were made to correct any mistakes made by this software, some mistakes, errors, and omissions may remain in the final note that were not caught when the note was originally created. Plan of care was discussed and agreed upon with the patient as specifically documented in the above note. An opportunity to ask questions with explanation was provided. Patient voiced understanding on all information reviewed and discussed. (Arsi Fabian MD) Oumou Garcia MD R2 March 27, 2018 13:48 Aris Fabian MD March 28, 2018 12:51
[2018-03-27] MEDS ORDERED: DEXTROSE 50% IN WATER 50 ML VIAL(D50) IV PUSH PRN (15:00)
[2018-03-27] MEDS ORDERED: METOCLOPRAMIDE HCL 10 MG/2 ML VIAL IV PUSH PRN (15:00)
[2018-03-27] MEDS ORDERED: GLUCAGON 1 MG/ML VIAL OTHER PRN (15:00)
[2018-03-27] MEDS ORDERED: SODIUM CHLORIDE 0.9% FLUSH 10 ML FLUSH IV FLUSH PRN (15:00)
[2018-03-27] MEDS ORDERED: Vancomycin Consult Pharmacy 1 EA OTHER SCH (15:00)
[2018-03-27] MEDS ORDERED: NALOXONE HCL 0.4 MG/ML AMP IV PUSH PRN (15:00)
[2018-03-27] MEDS: SODIUM CHLOR 0.9% 1000 ML INJ 1,000 ML IV SCH ×2 (15:35→21:25)
[2018-03-27] MEDS: NICOTINE 7 MG/24 HR PATCH T-DERMAL SCH (15:44)
[2018-03-27] MEDS ORDERED: oxyCODONE/ACETAMINOPHEN 5 MG/325 MG TAB PO PRN (15:45)
[2018-03-27] MEDS ORDERED: oxyCODONE/ACETAMINOPHEN 10 MG/325 MG TAB PO PRN (15:45)
[2018-03-27] MEDS ORDERED: ENOXAPARIN SODIUM 40 MG/0.4 ML SYRINGE SQ SCH (16:00)
[2018-03-27] MEDS ORDERED: ZOLPIDEM TARTRATE 5 MG TAB PO PRN (18:00)
[2018-03-27] MEDS: INSULIN ASPART SUPPLEMENTAL SCALE SQ SCH ×2 (18:16→21:26)
[2018-03-27] MEDS: PIPERACIL-TAZO 3.375 GM PREMIX 50 ML IV SCH (18:16)
[2018-03-27 18:52] LABS: HEMOGLOBIN A1C 12.4 % (4.3-6.0)
[2018-03-27] MEDS ORDERED: LORazepam 0.5 MG TAB PO ONE (19:30)
[2018-03-27] MEDS ORDERED: ENALAPRILAT 1.25 MG/ML VIAL IV PUSH PRN (19:30)
[2018-03-27 19:37] LABS: BILIRUBIN, URINE NEG (NEG); BLOOD, URINE NEG (NEG); GLUCOSE,URINE 1000 mg/dL (NEG); KETONE, URINE 10 mg/dL (NEG); NITRITE,URINE NEG (NEG); PH, URINE 5.5 (5.0-8.5); SQUAMOUS EPITHELIAL CELL URINE <1 /hpf (0-5); URINE COLOR LIGHT-YELLOW (YELLW/STRAW); URINE LEUKOCYTE ESTERASE NEG (NEG)
[2018-03-27 20:03] LABS: CHOLESTEROL/ HDL RATIO 4.14 RATIO; HDL CHOLESTEROL 36.7 MG/DL (40.0-60.0)
[2018-03-27] MEDS: SODIUM CHLORIDE 0.9% FLUSH 10 ML FLUSH IV FLUSH SCH (21:00)
[2018-03-27] MEDS ORDERED: REMOVE OLD PATCH T-DERMAL SCH (21:00)
[2018-03-27] MEDS: DOCUSATE SODIUM 50 MG/SENNA 8.6 MG TAB PO SCH (21:00)
[2018-03-27] MEDS: VANCOMYCIN INJ 2,500 MG in SODIUM CHLORID 0.9% 500 ML INJ 500 ML IV SCH (21:25)
[2018-03-27] MEDS: ACETAMINOPHEN 325 MG TAB PO PRN (21:28)
--- NOTE | 2018-03-28 00:34 | PD.AMA ---
Against Medical Advice Note Diagnosis: (1) Cellulitis Discharge Disposition: Against Medical Advice Pt Condition on Discharge: Stable AMA Statement Patient Gypsy Roman has decided to leave the hospital against medical advice. This patient has the capacity to refuse care and understands the risks of leaving, including permanent disability and/or , and has had an opportunity to ask questions about her condition. The patient has been informed that she may return for care at any time, and follow up has been advised. Courtney Mandujano MD R1 March 28, 2018 00:34
[2018-03-28] MEDS ORDERED: LORazepam 1 MG TAB PO ONE (00:45)
[2018-03-28] MEDS: PIPERACIL-TAZO 3.375 GM PREMIX 50 ML IV SCH ×3 (01:20→12:34)
[2018-03-28] MEDS ORDERED: VANCOMYCIN INJ 1,500 MG in SODIUM CHLORID 0.9% 500 ML INJ 500 ML IV SCH (02:00)
[2018-03-28 04:00] VITALS: BP 107/57; PULSE 80; RESP 18; TEMP 98.2; O2SAT 96
[2018-03-28] MEDS: SODIUM CHLOR 0.9% 1000 ML INJ 1,000 ML IV SCH ×2 (05:55→06:08)
[2018-03-28] MEDS: ACETAMINOPHEN 325 MG TAB PO PRN ×2 (06:07→12:52)
[2018-03-28 07:04] LABS: AUTOMATED NEUTROPHIL # 7.7 TH/MM3 (1.8-7.7); BASOPHIL # 0.1 TH/MM3 (0-0.2); BASOPHIL % 0.6 % (0.0-2.0); EOSINOPHIL # 0.3 TH/MM3 (0-0.4); EOSINOPHIL % 2.4 % (0.0-4.0); HEMATOCRIT 40.4 % (35.0-46.0); HEMOGLOBIN 13.5 GM/DL (11.6-15.3); LYMPH % 20.7 % (9.0-44.0); LYMPHOCYTE # 2.3 TH/MM3 (1.0-4.8); MEAN CORPUSCULAR HGB CONC 33.3 % (32.0-36.0); MEAN PLATELET VOLUME 7.6 FL (7.0-11.0); MONO % 7.4 % (0.0-8.0); MONOCYTE # 0.8 TH/MM3 (0-0.9); NEUT % 68.9 % (16.0-70.0); PLATELET COUNT 227 TH/MM3 (150-450); RED BLOOD COUNT 4.81 MIL/MM3 (4.00-5.30); RED CELL DISTRIBUTION WIDTH 13.7 % (11.6-17.2); WHITE BLOOD COUNT 11.2 TH/MM3 (4.0-11.0)
[2018-03-28 07:36] LABS: ALBUMIN 2.8 GM/DL (3.4-5.0); ALT (GPT) 18 U/L (10-53); AST (GOT) 8 U/L (15-37); BICARBONATE 25.6 MEQ/L (21.0-32.0); CALCIUM 8.2 MG/DL (8.5-10.1); CHLORIDE 103 MEQ/L (98-107); CREATININE 0.46 MG/DL (0.50-1.00); GLOMERULAR FILTRATION RATE 156 ML/MIN (>89); GLUCOSE,RANDOM 226 MG/DL (74-106); SODIUM (NA) 138 MEQ/L (136-145)
[2018-03-28 07:40] LABS: ALKALINE PHOSPHATASE 63 U/L (45-117); BLOOD UREA NITROGEN 9 MG/DL (7-18); TOTAL BILIRUBIN ADULT 0.4 MG/DL (0.2-1.0); TOTAL PROTEIN 6.3 GM/DL (6.4-8.2)
[2018-03-28 07:49] VITALS: BP 141/69; PULSE 77; RESP 22; TEMP 97.8; O2SAT 95
[2018-03-28] MEDS: NICOTINE 7 MG/24 HR PATCH T-DERMAL SCH (08:21)
[2018-03-28] MEDS: VANCOMYCIN INJ 2,500 MG in SODIUM CHLORID 0.9% 500 ML INJ 500 ML IV SCH (08:21)
[2018-03-28] MEDS: SODIUM CHLORIDE 0.9% FLUSH 10 ML FLUSH IV FLUSH SCH (08:22)
[2018-03-28] MEDS: DOCUSATE SODIUM 50 MG/SENNA 8.6 MG TAB PO SCH (08:22)
[2018-03-28] MEDS ORDERED: INSULIN DETEMIR 100 UNITS/ML VIAL SQ SCH (09:00)
[2018-03-28] MEDS ORDERED: LISINOPRIL 5 MG TAB PO SCH (09:00)
[2018-03-28] MEDS: INSULIN ASPART SUPPLEMENTAL SCALE SQ SCH ×2 (09:30→13:11)
--- NOTE | 2018-03-28 11:00 | RADRPT ---
EXAM DATE/TIME: 03/28/2018 10:06 [facility] COMPARISON: CT SOFT TISSUE NECK W CONTRAST, March 27, 2018, 12:01. INDICATIONS : Right mastoid abscess. MEDICAL HISTORY : Hypercholesterolemia. Hypertension. Deep venous thrombosis. Diabetes. Pulmonary embolism. Depression. Anxiety. Tobacco use. SURGICAL HISTORY : Tailbone cyst removed. ENCOUNTER: Subsequent ACUITY: 2 days PAIN SCORE: 8/10 LOCATION: Right neck AREA EVALUATED: Right lateral head. FINDINGS: Limited exam without identifiable abscess. CONCLUSION: Exam is limited without identifiable abscess. Ethan Killian MD FACR on March 28, 2018 at 10:53 Board Certified Radiologist. This report was verified electronically.
--- NOTE | 2018-03-28 11:23 | HHI.FPPN ---
Subjective Remarks No acute issues overnight. Vitals are stable, patient remains afebrile. The site of her abscess remains very tender today, but she is feeling somewhat better than yesterday. She states that she really wants to go home and does not want to be in the hospital. She did threaten to leave AMA last night because she does not like the hospital. She is tolerating p.o. (Shahida Og MD R3) Objective Vitals Vital Signs Date Time Temp Pulse Resp B/P (MAP) Pulse Ox O2 Delivery O2 Flow Rate FiO2 03/28/18 07:49 97.8 77 22 141/69 (93) 95 03/28/18 04:00 98.2 80 18 107/57 (74) 96 03/27/18 23:15 98.2 91 18 111/56 (74) 97 03/27/18 21:08 98.1 96 18 127/58 (81) 97 03/27/18 16:46 98.6 107 24 136/65 (88) 95 03/27/18 16:13 98.1 100 16 118/83 (95) 98 03/27/18 15:12 98.0 107 16 128/64 (85) 100 Room Air 03/27/18 12:26 97.8 117 16 122/68 (86) 99 Room Air I/O 03/27/18 03/27/18 03/27/18 03/28/18 03/28/18 03/28/18 07:00 15:00 23:00 07:00 15:00 23:00 Intake Total 1050 ml 300 ml 50 ml Balance 1050 ml 300 ml 50 ml Intake IV Total 1050 ml 300 ml 50 ml # Voids 2 (Shahida Og MD R3) Result Diagram: 03/28/18 0556 03/28/18 0556 Imaging Last Impressions Head CT 03/27/18 1016 Signed Impressions: Service Date/Time: Tuesday, March 27, 2018 12:01 - CONCLUSION: Subcutaneous fat induration at the base of the neck posteriorly which may represent an inflammatory process. No evidence of acute intracranial process. Tomas Heck MD Neck CT 03/27/18 1015 Signed Impressions: Service Date/Time: Tuesday, March 27, 2018 12:01 - CONCLUSION: Subcutaneous fat induration posteriorly on the right side of the neck with evidence of underlying reactive lymph nodes characteristic of cellulitis. No evidence of discrete abscess. Otherwise normal brain soft tissue structures of the neck. Tomas Heck MD Objective Remarks GENERAL: Well-nourished, well-developed, morbidly obese female in no acute distress. SKIN: Warm and dry. 10 x 5 cm superficial area of induration over the right mastoid region with significant tenderness to palpation, erythema, and warmth. Improved since yesterday's exam with slightly more fluctuance. HEAD: Normocephalic. EYES: No scleral icterus. No injection or drainage. NECK: Supple, trachea midline. No JVD or lymphadenopathy. CARDIOVASCULAR: Regular rate and rhythm without murmurs, gallops, or rubs. RESPIRATORY: Breath sounds equal bilaterally. No accessory muscle use. GASTROINTESTINAL: Abdomen soft, non-tender, nondistended. MUSCULOSKELETAL: No cyanosis, or edema. BACK: Nontender without obvious deformity. (Shahida Og MD R3) A/P Assessment and Plan Patient is a 32-year-old female who presented with right neck soft tissue swelling and was admitted for cellulitis. Discharge Planning Anticipate discharge home tomorrow. Patient will need case management assistance with procuring antibiotics and setting up primary care. (Shahida Og MD R3) Problem List: (1) Cellulitis ICD Codes: L03.90 - Cellulitis, unspecified Status: Acute Plan: Clinical improvement on exam today with somewhat more fluctuance of swollen area. 03/[address] shows subcutaneous fat induration posteriorly on the right side of the neck with evidence of underlying reactive lymph nodes characteristic of cellulitis. No evidence of discrete abscess. Leukocytosis trending down from 18.0-11.2 today PLAN -Continue Zosyn 3.375 g every 6 IV and vancomycin 1.5 mg every 12 IV (started ) with pharmacy to assist with dosing -Follow blood cultures. - Consult Gen surg for possible drainage. (2) Poorly controlled diabetes mellitus ICD Codes: E11.65 - Type 2 diabetes mellitus with hyperglycemia Status: Chronic Plan: HgbA1c 12.4 -Continue Accu-Cheks with sliding scale insulin -Levemir 10 units subcu twice daily -lisinopril 5 mg p.o. daily for renal protection - Diabetic Diet (3) Smoking greater than 10 pack years ICD Codes: F17.210 - Nicotine dependence, cigarettes, uncomplicated Status: Chronic Plan: -Nicotine Patch 7mg, remove HS -Tobacco cessation counseling provided (4) FEN/DVT PPX/GI PPX/Nursing Orders Plan: Fluids: Tolerating PO Electrolytes: wnl, monitor and replace as needed Nutrition: Diabetic diet, 2200 ADA DVT Prophylaxis: Bilateral SCDs, Lovenox 40mg daily Constipation prophylaxis: Pericolace 1 tab PO BID PRN Medications Tylenol 650 mg by mouth every 4 hours when necessary pain 1-10 or temperature greater than 100.4F Reglan 5 mg IV push every 6 hours when necessary nausea vomiting Percocet 325-5 mg 1 tab by mouth every 6 hours when necessary pain 5-7 Percocet 325-10 mg 1 tab by mouth every 6 hours when necessary pain 8-10 Vasotec 1.25 mg IV Q6h PRN SBP greater than 170 or DBP greater than 100 Ambien 10mg PO HS PRN Insomnia -Vitals Q4h -Monitor I's and O's -Activity OOB ad corina -Case management consult to assist with discharge disposition Disposition: Patient continues to clearly state that she does not want to stay in the hospital. Anticipate possible discharge tomorrow pending continued clinical improvement and resolution of leukocytosis. (Shahida Og MD R3) Problem List: (1) Cellulitis ICD Codes: L03.90 - Cellulitis, unspecified Status: Acute Plan: Clinical improvement on exam today with somewhat more fluctuance of swollen area. 03/[address] shows subcutaneous fat induration posteriorly on the right side of the neck with evidence of underlying reactive lymph nodes characteristic of cellulitis. No evidence of discrete abscess. Leukocytosis trending down from 18.0-11.2 today PLAN -Continue Zosyn 3.375 g every 6 IV and vancomycin 1.5 mg every 12 IV (started ) with pharmacy to assist with dosing -Follow blood cultures. - Consult Gen surg for possible drainage. (2) Poorly controlled diabetes mellitus ICD Codes: E11.65 - Type 2 diabetes mellitus with hyperglycemia Status: Chronic Plan: HgbA1c 12.4 -Continue Accu-Cheks with sliding scale insulin -Levemir 10 units subcu twice daily -lisinopril 5 mg p.o. daily for renal protection - Diabetic Diet (3) Smoking greater than 10 pack years ICD Codes: F17.210 - Nicotine dependence, cigarettes, uncomplicated Status: Chronic Plan: -Nicotine Patch 7mg, remove HS -Tobacco cessation counseling provided (4) FEN/DVT PPX/GI PPX/Nursing Orders Plan: Fluids: Tolerating PO Electrolytes: wnl, monitor and replace as needed Nutrition: Diabetic diet, 2200 ADA DVT Prophylaxis: Bilateral SCDs, Lovenox 40mg daily Constipation prophylaxis: Pericolace 1 tab PO BID PRN Medications Tylenol 650 mg by mouth every 4 hours when necessary pain 1-10 or temperature greater than 100.4F Reglan 5 mg IV push every 6 hours when necessary nausea vomiting Percocet 325-5 mg 1 tab by mouth every 6 hours when necessary pain 5-7 Percocet 325-10 mg 1 tab by mouth every 6 hours when necessary pain 8-10 Vasotec 1.25 mg IV Q6h PRN SBP greater than 170 or DBP greater than 100 Ambien 10mg PO HS PRN Insomnia -Vitals Q4h -Monitor I's and O's -Activity OOB ad corina -Case management consult to assist with discharge disposition Disposition: Patient continues to clearly state that she does not want to stay in the hospital. Anticipate possible discharge tomorrow pending continued clinical improvement and resolution of leukocytosis. See the residents documentation for details. I saw and evaluated the patient regarding the [place] portions of this evaluation and agree with the residents findings and plans as written. Parts of this note were created using [employer] voice recognition software program. While efforts were made to correct any mistakes made by this software, some mistakes, errors, and omissions may remain in the final note that were not caught when the note was originally created. Plan of care was discussed and agreed upon with the patient as specifically documented in the above note. An opportunity to ask questions with explanation was provided. Patient voiced understanding on all information reviewed and discussed. (Aris Fabian MD) Problem Qualifiers (1) Cellulitis: Qualified Codes: L03.221 - Cellulitis of neck Shahida Og MD R3 March 28, 2018 11:23 Aris Fabian MD March 28, 2018 12:55
--- NOTE | 2018-03-28 12:17 | PD.CONS ---
cc: Anup Patel MD HPI Service General Surgery Consult Requested By Dr. Bhagat Reason for Consult Large RIGHT sided neck abscess in uncontrolled diabetic Primary Care Physician No Primary Care Physician History of Present Illness This is a 32 year old female with a past medical history of poorly controlled diabetes mellitus type 2 and pulmonary emboli. She reports she is supposed to be on oral anticoagulation medication but due to insurance issues the patient is not able to finance the medication. The patient came to the ED yesterday with complaints of neck pain, headache and a large "bump" on the RIGHT side of her posterior neck. She denies any trauma; she is unaware of any bug bites. She denies any fever or chills. She denies any nausea or vomiting. A neck CT was completed which shows evidence of underlying reactive lymph nodes with characteristics of cellulitis but no fluid collection. Her WBC was elevated on admission at 18, 000 but now 11, 200. Her other laboratory work is unremarkable. The patient has been started on Vancomycin. She states there improvement in the area. A General Surgery consultation has been requested. Review of Systems Constitutional: DENIES: Fatigue, Fever, Chills Endocrine: DENIES: Polydipsia, Polyuria, Polyphagia Eyes: DENIES: Diplopia, Eye inflammation Ears, nose, mouth, throat: DENIES: Hearing loss Respiratory: DENIES: Apneas, Cough, Sputum production, Shortness of breath Cardiovascular: DENIES: Chest pain, Palpitations, Lower Extremity Edema Gastrointestinal: DENIES: Abdominal pain, Nausea, Vomiting Genitourinary: DENIES: Urinary frequency, Hematuria, Dysuria Musculoskeletal: COMPLAINS OF: Neck pain (r/t to large abscess ), DENIES: Joint pain Integumentary: DENIES: Abnormal pigmentation Hematologic/lymphatic: DENIES: Bruising Immunologic/allergic: DENIES: Eczema Neurologic: COMPLAINS OF: Headache, DENIES: Localized weakness, Paresthesias Psychiatric: DENIES: Confusion, Mood changes, Depression Past Family Social History Past Medical History Diabetes mellitus type 2 Pulmonary Emboli x 2 --- is supposed to be on chronic oral anticoagulation but is non-compliant Past Surgical History Pilonidal cyst Multiple abscess drained at bedside--- primarily of buttocks Reported Medications None Allergies: Coded Allergies: No Known Allergies (Verified Adverse Reaction, Unknown, 03/27/18) Active Ordered Medications Current Medications Medications (Trade) Dose Ordered Sig/Daniel Route Start Time Stop Time Status Last Admin (NS Flush) 2 ml UNSCH PRN IV FLUSH 03/27/18 15:00 (NS Flush) 2 ml BID IV FLUSH 03/27/18 21:00 (Tylenol) 650 mg Q4H PRN PO 03/27/18 15:00 03/28/18 06:07 (Reglan Inj) 5 mg Q6H PRN IV PUSH 03/27/18 15:00 (Lovenox Inj) 40 mg Q24H SQ 03/27/18 16:00 03/27/18 15:35 (Narcan Inj) 0.4 mg UNSCH PRN IV PUSH 03/27/18 15:00 (Reny-Colace) 1 tab BID PO 03/27/18 21:00 03/28/18 08:22 (D50w (Vial) Inj) 50 ml UNSCH PRN IV PUSH 03/27/18 15:00 (Glucagon Inj) 1 mg UNSCH PRN OTHER 03/27/18 15:00 (NovoLOG SUPPLEMENTAL SCALE) 1 ACHS SLIDING SCALE SQ 03/27/18 17:00 03/28/18 09:30 Pharmacy Profile Note 0 ml @ 0 mls/hr UNSCH OTHER 03/27/18 15:00 Piperacillin Sod/ Tazobactam Sod 50 ml @ 100 mls/hr Q6H IV 03/27/18 19:00 03/28/18 06:08 (Prinivil) 5 mg DAILY PO 03/28/18 09:00 03/28/18 08:22 (Habitrol 7 Mg Patch.24 Hr) 1 patch DAILY T-DERMAL 03/27/18 15:00 03/28/18 08:21 Miscellaneous Information 1 HS T-DERMAL 03/27/18 21:00 03/27/18 21:27 (Percocet 5-325 Mg) 1 tab Q4H PRN PO 03/27/18 15:45 (Percocet 10-325 Mg) 1 tab Q4H PRN PO 03/27/18 15:45 (Ambien) 5 mg HS PRN PO 03/27/18 18:00 (Vasotec Inj) 1.25 mg Q6H PRN IV PUSH 03/27/18 19:30 Vancomycin HCl 2500 mg/Sodium Chloride 525 ml @ 250 mls/hr Q12H IV 03/27/18 20:00 03/28/18 08:21 [place] [place] Info) SPECIFIC LAB TO BE ... ONCE ONCE .XX 03/29/18 07:45 03/29/18 07:46 (Levemir Inj) 10 units Q12HR SQ 03/28/18 09:00 03/28/18 08:22 Family History Non contributory Social History + tobacco use--- 1/2 PPD for many years Denies ETOH use Denies illicit drug use Works for an [employer] locally. Physical Exam Vital Signs Vital Signs Date Time Temp Pulse Resp B/P (MAP) Pulse Ox O2 Delivery O2 Flow Rate FiO2 03/28/18 07:49 97.8 77 22 141/69 (93) 95 03/28/18 04:00 98.2 80 18 107/57 (74) 96 03/27/18 23:15 98.2 91 18 111/56 (74) 97 03/27/18 21:08 98.1 96 18 127/58 (81) 97 03/27/18 16:46 98.6 107 24 136/65 (88) 95 03/27/18 16:13 98.1 100 16 118/83 (95) 98 03/27/18 15:12 98.0 107 16 128/64 (85) 100 Room Air 03/27/18 12:26 97.8 117 16 122/68 (86) 99 Room Air Physical Exam GENERAL: 32 year old morbidly obese female resting in bed with her legs crossed. SKIN: Warm and dry. HEAD: Atraumatic. Normocephalic. EYES: Pupils equal and round. No scleral icterus. No injection or drainage. ENT: No nasal bleeding or discharge. Mucous membranes pink and moist. NECK: Trachea midline. RIGHT posterior neck: large raised areas; area only mildly pink; no drainage; no palpable fluid collection CARDIOVASCULAR: Regular rate and rhythm. RESPIRATORY: No accessory muscle use. Clear to auscultation. Breath sounds equal bilaterally. GASTROINTESTINAL: Abdomen soft, non-tender, nondistended. Hepatic and splenic margins not palpable. MUSCULOSKELETAL: Extremities without clubbing, cyanosis, or edema. No obvious deformities. NEUROLOGICAL: Awake and alert. No obvious cranial nerve deficits. Motor grossly within normal limits. Five out of 5 muscle strength in the arms and legs. Normal speech. PSYCHIATRIC: Appropriate mood and affect; insight and judgment normal. Laboratory Laboratory Tests Test 03/27/18 13:09 03/27/18 17:08 03/27/18 20:20 03/28/18 05:56 C-Reactive Protein 15.00 12.80 Triglycerides Level 148 Cholesterol Level 152 LDL Cholesterol 86 HDL Cholesterol 36.7 Cholesterol/HDL Ratio 4.14 Thyroid Stimulating Hormone 3rd Gen 2.360 Urine Color LIGHT-YELLOW Urine Turbidity CLEAR Urine pH 5.5 Urine Specific [place] 1.047 Urine Protein NEG Urine Glucose (UA) 1000 Urine Ketones 10 Urine Occult Blood NEG Urine Nitrite NEG Urine Bilirubin NEG Urine Urobilinogen LESS THAN 2.0 Urine Leukocyte Esterase NEG Urine RBC LESS THAN 1 Urine WBC LESS THAN 1 Urine Squamous Epithelial Cells <1 Microscopic Urinalysis Comment CULT NOT INDICATED Urine Opiates Screen NEG Urine Barbiturates Screen NEG Urine Amphetamines Screen NEG Urine Benzodiazepines Screen NEG Urine Cocaine Screen NEG Urine Cannabinoids Screen NEG Lactic Acid Level 1.2 White Blood Count 11.2 Red Blood Count 4.81 Hemoglobin 13.5 Hematocrit 40.4 Mean Corpuscular Volume 84.0 Mean Corpuscular Hemoglobin 28.0 Mean Corpuscular Hemoglobin Concent 33.3 Red Cell Distribution Width 13.7 Platelet Count 227 Mean Platelet Volume 7.6 Neutrophils (%) (Auto) 68.9 Lymphocytes (%) (Auto) 20.7 Monocytes (%) (Auto) 7.4 Eosinophils (%) (Auto) 2.4 Basophils (%) (Auto) 0.6 Neutrophils # (Auto) 7.7 Lymphocytes # (Auto) 2.3 Monocytes # (Auto) 0.8 Eosinophils # (Auto) 0.3 Basophils # (Auto) 0.1 CBC Comment DIFF FINAL Differential Comment Blood Urea Nitrogen 9 Creatinine 0.46 Random Glucose 226 Total Protein 6.3 Albumin 2.8 Calcium Level 8.2 Alkaline Phosphatase 63 Aspartate Amino Transf (AST/SGOT) 8 Alanine Aminotransferase (ALT/SGPT) 18 Total Bilirubin 0.4 Sodium Level 138 Potassium Level 3.7 Chloride Level 103 Carbon Dioxide Level 25.6 Anion Gap 9 Estimat Glomerular Filtration Rate 156 Date/Time Source Procedure Growth Status 03/27/18 15:55 Blood Peripheral Aerobic Blood Culture - Preliminary NO GROWTH IN 1 DAY Resulted 03/27/18 15:55 Blood Peripheral Anaerobic Blood Culture - Preliminary NO GROWTH IN 1 DAY Resulted Result Diagram: 03/28/18 0556 03/28/18 0556 Imaging Last 48 hours Impressions Neck Ultrasound 03/28/18 0943 Signed Impressions: Service Date/Time: Wednesday, March 28, 2018 10:06 - CONCLUSION: Exam is limited without identifiable abscess. Ethan Killian MD FACR Head CT 03/27/18 1016 Signed Impressions: Service Date/Time: Tuesday, March 27, 2018 12:01 - CONCLUSION: Subcutaneous fat induration at the base of the neck posteriorly which may represent an inflammatory process. No evidence of acute intracranial process. Tomas Heck MD Neck CT 03/27/18 1015 Signed Impressions: Service Date/Time: Tuesday, March 27, 2018 12:01 - CONCLUSION: Subcutaneous fat induration posteriorly on the right side of the neck with evidence of underlying reactive lymph nodes characteristic of cellulitis. No evidence of discrete abscess. Otherwise normal brain soft tissue structures of the neck. Tomas Heck MD Assessment and Plan Assessment and Plan This is a 32 year old female with poorly controlled diabetes mellitus with large area of RIGHT posterior neck--- cellulitis vs abscess -Okay to transition to PO antibiotics -No surgical intervention needed -Counseled on tight control of sugars for proper healing -General Surgery cleared for DC -Bactrim rx left on chart -Discussed with Dr. Bhagat with the [facility] Discussed Condition With Dr. Jorge Bhagat MsAna Rosa [place] Attending Statement I personally evaluated patient and reviewed images. The pt has mildly erythematous skin changes and swelling R side and posterior neck/scalp. No fluctuant areas identified. No drainable fluid collection seen on imaging. I agree with the recommendations of abx and follow up as needed. The patient desperately wants to go home. The exam, history, and the medical decision-making described in the above note were completed with the assistance of the mid-level provider. I reviewed and agree with the findings presented. I attest that I had a [id number] encounter with the patient on the same day, and personally performed and documented my assessment and findings in the medical record. Shahida Carvajal/[employer] March 28, 2018 12:17 Anup Patel MD March 28, 2018 14:53
[2018-03-28] MEDS ORDERED: BACT800T5 PO (12:26)
[2018-03-28 12:30] VITALS: BP 133/72; PULSE 82; RESP 20; TEMP 97.6; O2SAT 96
[2018-03-28] MEDS ORDERED: LEVEMIR SQ (13:39)
[2018-03-28] MEDS ORDERED: METF1000 PO (13:39)
--- NOTE | 2018-03-28 13:40 | HHI.DCPOC ---
Discharge Care Plan Diagnosis: (1) Poorly controlled diabetes mellitus (2) Cellulitis Goals to Promote Your Health * To prevent worsening of your condition and complications * To maintain your health at the optimal level Directions to Meet Your Goals Take your medications as prescribed Follow your dietary instruction Follow activity as directed Discuss with patient at length about taking appropriate medications. Return to the ED if symptoms worsening. Patient understood and agreed. Keep your appointments as scheduled Take your immunizations and boosters as scheduled If your symptoms worsen call your PCP, if no PCP go to Urgent Care Center or Emergency Room Smoking is Dangerous to Your Health. Avoid second hand smoke Call the 24-hour hour crisis hotline for domestic abuse at Kathy Bhagat MD R1 March 28, 2018 13:40 Aris Fabian MD March 29, 2018 12:22
[2018-03-28 15:09] LABS: HEMATOCRIT 39.8 % (35.0-46.0); HEMOGLOBIN 13.1 GM/DL (11.6-15.3); MEAN CELL VOLUME 83.7 FL (80.0-100.0); MEAN CORPUSCULAR HEMOGLOBIN 27.5 PG (27.0-34.0); MEAN CORPUSCULAR HGB CONC 32.9 % (32.0-36.0); MEAN PLATELET VOLUME 7.6 FL (7.0-11.0); PLATELET COUNT 217 TH/MM3 (150-450); RED BLOOD COUNT 4.76 MIL/MM3 (4.00-5.30); RED CELL DISTRIBUTION WIDTH 13.5 % (11.6-17.2)
[2018-03-28 15:17] VITALS: BP 133/65; PULSE 81; RESP 20; TEMP 97.6; O2SAT 96
[2018-03-29] MEDS ORDERED: PHARMACY ORDERED LAB ONE (07:45)
== END 2018-03-28 15:52 | disposition home or self-care (01) ==
LOC: NEPE 09:28 → INTOOBSV 13:38 → NEDA 13:38 → NEPHCDU 16:38
PROVIDERS: ADMIT Family Medicine; ATTEND Family Medicine
DX: L03.221 Cellulitis of neck (principal); L02.11 Cutaneous abscess of neck; A41.9 Sepsis, unspecified organism; E87.1 Hypo-osmolality and hyponatremia; E11.65 Type 2 diabetes mellitus with hyperglycemia; R51 Headache; I10 Essential (primary) hypertension; F17.200 Nicotine dependence, unspecified, uncomplicated; Z91.14 Patient's other noncompliance with medication regimen; Z86.711 Personal history of pulmonary embolism
CPT/HCPCS: 70450; 70491; 76536; 80053; 80061; 80307; 81001; 82948; 83036; 83605; 84443; 85025; 85027; 85610; 85730; 86140; 87040; 96361; 96365; 96366; 96372; 96376; 99285; G0378; J1650; J1815; J2543; J3370; J7030; J7040; J7050

== ENCOUNTER 2018-03-30 10:57 | Emergency (ER) | payer SELFPAY ==
[~2018-03-30 10:57] MED LIST changes: -CEPH-460 PO; +LEVEMIR SQ; +METF1000 PO
[2018-03-30 11:08] VITALS: BP 152/65; PULSE 91; RESP 18; TEMP 98.3; O2SAT 97
[2018-03-30] MEDS ORDERED: KETOROLAC TROMETHAMINE 30 MG/ML (IVP) VIAL IV PUSH ONE (11:30)
--- NOTE | 2018-03-30 11:35 | PD ---
HPI Chief Complaint: Skin Problem Time Seen by Provider: 11:20 Travel History International Travel<30 days: No Contact w/Intl Traveler<30days: No Traveled to known affect area: No History of Present Illness HPI 32-year-old female presents emergency department for evaluation of a painful lesion on the right posterior neck. Patient was recently hospitalized and discharged 2 days ago home on Bactrim for a right posterior neck cellulitis. She states she has been taking her antibiotic as prescribed. She noticed that the area began to drain but has also increased in size and become more painful. It is constant, throbbing, exacerbated by touch or pressure. She denies any fever or chills. She denies any other symptoms at this time. PFSH Past Medical History Hx Anticoagulant Therapy: No (suppose to be on but stoped taking) Arthritis: No Asthma: No Autoimmune Disease: No Blood Disorders: No Anxiety: Yes Depression: Yes Heart Rhythm Problems: No Cancer: No Cardiovascular Problems: Yes High Cholesterol: Yes Chemotherapy: No Chest Pain: No Congestive Heart Failure: No COPD: No Diabetes: Yes Patient Takes Glucophage: Yes Diminished Hearing: No Endocrine: Yes Gastrointestinal Disorders: No Genitourinary: No Hypertension: Yes Immune Disorder: No Musculoskeletal: No Neurologic: No Psychiatric: Yes Reproductive: No Respiratory: Yes (PE 2013) Immunizations Current: No Myocardial Infarction: No Radiation Therapy: No Sleep Apnea: No Thyroid Disease: No Tetanus Vaccination: Unknown Influenza Vaccination: No ?: Not : 1 : 1 Past Surgical History Abdominal Surgery: No AICD: No Arteriovenous Shunt: No Cardiac Surgery: No Ear Surgery: No Endocrine Surgery: No Eye Surgery: No Genitourinary Surgery: No Gynecologic Surgery: No Insulin Pump: No Joint Replacement: No Neurologic Surgery: No Oral Surgery: No Pacemaker: No Thoracic Surgery: No Other Surgery: Yes (CYST REMOVAL BUTTOCK) Social History Alcohol Use: No Tobacco Use: Yes (11/14 PPD) Substance Use: No Allergies-Medications (Allergen,Severity, Reaction): Coded Allergies: No Known Allergies (Verified Adverse Reaction, Unknown, 03/27/18) Reported Meds & Prescriptions Reported Meds & Active Scripts Active Metformin (Metformin HCl) 1,000 Mg Tab 1,000 Mg PO BIDPC Levemir Inj (Insulin Detemir) 1,000 unit/ 10 ML Vial 10 Units SQ Q12HR Do not mix with any other Insulin. Bactrim DS (Sulfamethoxazole-Trimethoprim) 800-160 Mg Tab 1 Tab PO BID Review of Systems Except as stated in HPI: all other systems reviewed are Neg Physical Exam Narrative GENERAL: Obese female patient, sitting up in bed, in no acute distress SKIN: Focused skin assessment warm/dry. There is an indurated area in the right posterior neck which measures about 8 cm in diameter. It is not fluctuant but there does appear to be an area that is scabbed with some dried drainage medial to it. There is a zone of inflammation around it but no lymphangitis. HEAD: Atraumatic. Normocephalic. EYES: Pupils equal and round. No scleral icterus. No injection or drainage. ENT: No nasal bleeding or discharge. Mucous membranes pink and moist. NECK: Trachea midline. No JVD. CARDIOVASCULAR: Regular rate and rhythm. No murmur appreciated. RESPIRATORY: No accessory muscle use. Clear to auscultation. Breath sounds equal bilaterally. GASTROINTESTINAL: Abdomen soft, non-tender, nondistended. Hepatic and splenic margins not palpable. MUSCULOSKELETAL: No obvious deformities. No clubbing. No cyanosis. No edema. NEUROLOGICAL: Awake and alert. No obvious cranial nerve deficits. Motor grossly within normal limits. Normal speech. PSYCHIATRIC: Appropriate mood and affect; insight and judgment normal. Data Data Last Documented VS Vital Signs Date Time Temp Pulse Resp B/P (MAP) Pulse Ox O2 Delivery O2 Flow Rate FiO2 03/30/18 12:42 16 03/30/18 11:08 98.3 91 152/65 (94) 97 Orders Orders Complete Blood Count With Diff (03/30/18 11:30) Blood Culture (03/30/18 11:30) Blood Glucose (03/30/18 11:30) Ecg Monitoring (03/30/18 11:30) Iv Access Insert/Monitor (03/30/18 11:30) Oximetry (03/30/18 11:30) Oxygen Administration (03/30/18 11:30) Basic Metabolic Panel (Bmp) (03/30/18 11:30) Ketorolac Inj (Toradol Inj) (03/30/18 11:30) Ct Soft Tiss Neck W Iv Cont (03/30/18 ) Iohexol 350 Inj (Omnipaque 350 Inj) (03/30/18 13:14) Ed Discharge Order (03/30/18 14:05) Labs Laboratory Tests Test 03/30/18 11:45 White Blood Count 12.0 TH/MM3 Red Blood Count 5.06 MIL/MM3 Hemoglobin 14.2 GM/DL Hematocrit 42.4 % Mean Corpuscular Volume 83.8 FL Mean Corpuscular Hemoglobin 28.1 PG Mean Corpuscular Hemoglobin Concent 33.5 % Red Cell Distribution Width 13.8 % Platelet Count 258 TH/MM3 Mean Platelet Volume 7.4 FL Neutrophils (%) (Auto) 79.2 % Lymphocytes (%) (Auto) 12.1 % Monocytes (%) (Auto) 6.0 % Eosinophils (%) (Auto) 2.0 % Basophils (%) (Auto) 0.7 % Neutrophils # (Auto) 9.5 TH/MM3 Lymphocytes # (Auto) 1.5 TH/MM3 Monocytes # (Auto) 0.7 TH/MM3 Eosinophils # (Auto) 0.2 TH/MM3 Basophils # (Auto) 0.1 TH/MM3 CBC Comment DIFF FINAL Differential Comment Blood Urea Nitrogen 9 MG/DL Creatinine 0.80 MG/DL Random Glucose 301 MG/DL Calcium Level 8.9 MG/DL Sodium Level 136 MEQ/L Potassium Level 4.4 MEQ/L Chloride Level 105 MEQ/L Carbon Dioxide Level 23.1 MEQ/L Anion Gap 8 MEQ/L Estimat Glomerular Filtration Rate 82 ML/MIN MDM Medical Decision Making Medical Screen Exam Complete: Yes Emergency Medical Condition: Yes Medical Record Reviewed: Yes Differential Diagnosis Cellulitis versus abscess versus erysipelas versus folliculitis versus cyst Narrative Course 32-year-old female presents emergency department for evaluation of worsening painful lesion on the right posterior neck. Patient was discharged 2 days ago following a short hospitalization for a cellulitis in this area. Patient appears nontoxic. She is afebrile. Patient does have a large lesion on the right posterior neck. It is not fluctuant. I discussed the patient my attending physician and repeat imaging will be completed to reevaluate the progression of this area. Laboratory Tests Test 03/30/18 11:45 White Blood Count 12.0 TH/MM3 Red Blood Count 5.06 MIL/MM3 Hemoglobin 14.2 GM/DL Hematocrit 42.4 % Mean Corpuscular Volume 83.8 FL Mean Corpuscular Hemoglobin 28.1 PG Mean Corpuscular Hemoglobin Concent 33.5 % Red Cell Distribution Width 13.8 % Platelet Count 258 TH/MM3 Mean Platelet Volume 7.4 FL Neutrophils (%) (Auto) 79.2 % Lymphocytes (%) (Auto) 12.1 % Monocytes (%) (Auto) 6.0 % Eosinophils (%) (Auto) 2.0 % Basophils (%) (Auto) 0.7 % Neutrophils # (Auto) 9.5 TH/MM3 Lymphocytes # (Auto) 1.5 TH/MM3 Monocytes # (Auto) 0.7 TH/MM3 Eosinophils # (Auto) 0.2 TH/MM3 Basophils # (Auto) 0.1 TH/MM3 CBC Comment DIFF FINAL Differential Comment Blood Urea Nitrogen 9 MG/DL Creatinine 0.80 MG/DL Random Glucose 301 MG/DL Calcium Level 8.9 MG/DL Sodium Level 136 MEQ/L Potassium Level 4.4 MEQ/L Chloride Level 105 MEQ/L Carbon Dioxide Level 23.1 MEQ/L Anion Gap 8 MEQ/L Estimat Glomerular Filtration Rate 82 ML/MIN White count has increased slightly since patient's discharge 2 days ago. Mild leukocytosis of 12,000. Last Impressions Neck CT 03/30/18 0000 Signed Impressions: Service Date/Time: Friday, March 30, 2018 12:56 - CONCLUSION: Inflammatory stranding, edema and some nodular fluid density foci in the subcutaneous fat of the right posterior neck with skin thickening consistent with cellulitis. No definite evidence for abscess at this time. Kiran Flaherty MD Findings are discussed with my attending physician who is also assessed the patient and reviewed the findings. The patient does not appear toxic. She does not want to stay in the hospital. I have discussed this with my attending physician and we will start the patient on clindamycin with strict instructions to return immediately with any acute worsening of symptoms, elevated blood glucose that she cannot control, fever, or chills. She agrees with this plan of care. Diagnosis Primary Impression: Cellulitis and abscess of neck Referrals: Primary Care Physician Patient Instructions: Cellulitis (ED), General Instructions Additional Instructions: Warm compresses to the affected area Do not squeeze the affected area Follow-up with a primary care provider Continue your Bactrim. Start clindamycin today Yogurt with live cultures, or probiotic may help to reduce GI upset Return immediately with acute worsening symptoms Med/Other Pt SpecificInfo: Prescription(s) given Scripts Clindamycin (Clindamycin) 150 Mg Cap 300 MG PO Q6H for Infection for 10 Days, #80 CAP 0 Refills Prov: Nuria Rome 03/30/18 Disposition: 01 DISCHARGE HOME Condition: Stable Nuria Rome March 30, 2018 11:35
[2018-03-30 11:48] VITALS: RESP 16
[2018-03-30 11:53] LABS: AUTOMATED NEUTROPHIL # 9.5 TH/MM3 (1.8-7.7); BASOPHIL # 0.1 TH/MM3 (0-0.2); BASOPHIL % 0.7 % (0.0-2.0); EOSINOPHIL # 0.2 TH/MM3 (0-0.4); HEMATOCRIT 42.4 % (35.0-46.0); HEMOGLOBIN 14.2 GM/DL (11.6-15.3); LYMPH % 12.1 % (9.0-44.0); LYMPHOCYTE # 1.5 TH/MM3 (1.0-4.8); MEAN CELL VOLUME 83.8 FL (80.0-100.0); MEAN CORPUSCULAR HEMOGLOBIN 28.1 PG (27.0-34.0); MEAN CORPUSCULAR HGB CONC 33.5 % (32.0-36.0); MEAN PLATELET VOLUME 7.4 FL (7.0-11.0); MONOCYTE # 0.7 TH/MM3 (0-0.9); NEUT % 79.2 % (16.0-70.0); PLATELET COUNT 258 TH/MM3 (150-450); RED BLOOD COUNT 5.06 MIL/MM3 (4.00-5.30); RED CELL DISTRIBUTION WIDTH 13.8 % (11.6-17.2)
[2018-03-30 12:42] VITALS: RESP 16
[2018-03-30 12:48] LABS: CREATININE 0.8 MG/DL (0.50-1.00)
[2018-03-30 12:49] LABS: BICARBONATE 23.1 MEQ/L (21.0-32.0); CALCIUM 8.9 MG/DL (8.5-10.1)
[2018-03-30] MEDS ORDERED: IOHEXOL 350 MG/ML 10 ML VIAL (for RAD DIAG) IVCONTRAST ONE (13:14)
--- NOTE | 2018-03-30 13:43 | RADRPT ---
EXAM DATE/TIME: 03/30/2018 12:56 [facility] COMPARISON: CT SOFT TISSUE NECK W CONTRAST, March 27, 2018, 12:01. INDICATIONS : Pain and swelling right posterior neck. IV CONTRAST: 61 cc Omnipaque 350 (iohexol) IV RADIATION DOSE: 23.56 CTDIvol (mGy) MEDICAL HISTORY : Cardiovascular disease. Hypertension. Diabetes mellitus type 2. SURGICAL HISTORY : None. ENCOUNTER: Initial ACUITY: 1 day PAIN SCALE: 10/10 LOCATION: Right neck TECHNIQUE: Volumetric scanning of the neck was performed. Using automated exposure control and adjustment of th e mA and/or kV according to patient size, radiation dose was kept as low as reasonably achievable to obtain optimal diagnostic quality images. DICOM format image data is available electronically for r eview and comparison. FINDINGS: There is mild skin thickening and subcutaneous edema identified in the right posterior occipital eder on. On the current study there is a slight increase in ill-defined fluid attenuation in this region w ithout well-defined organized collection to suggest abscess. NASOPHARYNX: The nasopharyngeal airway has a normal configuration. No mucosal thickening or mass is seen. OROPHARYNX: The intrinsic muscles of the tongue are symmetric. The tonsillar pillars are intact. The prevertebr al soft tissues are not thickened. LARYNX: The supraglottic, glottic, and infraglottic structures are intact. PARAPHARYNGEAL: The parapharyngeal space is intact. SALIVARY GLANDS: The parotid and submandibular glands are intact. LYMPH NODES: Scattered reactive lymph nodes are seen in the back bilaterally and are unchanged. THYROID: Homogeneous enhancement without evidence of nodule. BONES: Unremarkable. CONCLUSION: Inflammatory stranding, edema and some nodular fluid density foci in the subcutaneous fat of the righ t posterior neck with skin thickening consistent with cellulitis. No definite evidence for abscess at this time. Kiran Flaherty MD on March 30, 2018 at 13:38 Board Certified Radiologist. This report was verified electronically.
[2018-03-30] MEDS ORDERED: CLIN150C14 PO (14:10)
--- NOTE | 2018-03-30 15:31 | PD ---
Physical Exam Date Seen by Provider: March 30, 2018 Time Seen by Provider: 12:00 Narrative I, Dr. Pritchard, have reviewed the advance practice practitioner's documentation and am in agreement, met with the patient face to face, made the diagnosis, and the medical decision making was done by me. *My assessment and Findings: Patient seen and evaluated with nurse practitioner , please see nurse practitioner's note for further details, here with worsening pain and swelling of the neck, had been seen previously for cellulitis in the same area, currently on an antibiotic without improvement. Laboratory Tests Test 03/30/18 11:45 White Blood Count 12.0 TH/MM3 (4.0-11.0) Neutrophils (%) (Auto) 79.2 % (16.0-70.0) Neutrophils # (Auto) 9.5 TH/MM3 (1.8-7.7) Random Glucose 301 MG/DL (74-106) Estimat Glomerular Filtration Rate 82 ML/MIN (>89) Last [address] 03/30/18 0000 Signed Impressions: Service Date/Time: Friday, March 30, 2018 12:56 - CONCLUSION: Inflammatory stranding, edema and some nodular fluid density foci in the subcutaneous fat of the right posterior neck with skin thickening consistent with cellulitis. No definite evidence for abscess at this time. Kiran Flaherty MD No abscess was identified. This appears to be ongoing cellulitis not responsive to p.o. antibiotics. Vital signs are stable and she is not septic but at this point I have talked to her about being admitted for IV antibiotics for further treatment. However, the patient is declining to stay and wants to leave AGAINST MEDICAL ADVICE. We will give her a second antibiotic and have her follow-up very closely with primary care doctor. I have warned her that her cellulitis may worsen and she may become septic, patient states understanding and still wants to leave. She is awake, alert, oriented, able to make her own decisions. She will be leaving AGAINST MEDICAL ADVICE. AMA: The risks of leaving against medical advice without further evaluation treatment were discussed with the patient. These risks include cardiac dysfunction, cardiac dysrhythmia, possible heart attack, possible stroke or . The patient indicated understanding of these risks and appeared to have the capacity to make this decision. Data Data Last Documented VS Vital Signs Date Time Temp Pulse Resp B/P (MAP) Pulse Ox O2 Delivery O2 Flow Rate FiO2 03/30/18 12:42 16 03/30/18 11:08 98.3 91 152/65 (94) 97 Orders Orders Complete Blood Count With Diff (03/30/18 11:30) Blood Culture (03/30/18 11:30) Blood Glucose (03/30/18 11:30) Ecg Monitoring (03/30/18 11:30) Iv Access Insert/Monitor (03/30/18 11:30) Oximetry (03/30/18 11:30) Oxygen Administration (03/30/18 11:30) Basic Metabolic Panel (Bmp) (03/30/18 11:30) Ketorolac Inj (Toradol Inj) (03/30/18 11:30) Ct Soft Tiss Neck W Iv Cont (03/30/18 ) Iohexol 350 Inj (Omnipaque 350 Inj) (03/30/18 13:14) Ed Discharge Order (03/30/18 14:05) Labs Laboratory Tests Test 03/30/18 11:45 White Blood Count 12.0 TH/MM3 Red Blood Count 5.06 MIL/MM3 Hemoglobin 14.2 GM/DL Hematocrit 42.4 % Mean Corpuscular Volume 83.8 FL Mean Corpuscular Hemoglobin 28.1 PG Mean Corpuscular Hemoglobin Concent 33.5 % Red Cell Distribution Width 13.8 % Platelet Count 258 TH/MM3 Mean Platelet Volume 7.4 FL Neutrophils (%) (Auto) 79.2 % Lymphocytes (%) (Auto) 12.1 % Monocytes (%) (Auto) 6.0 % Eosinophils (%) (Auto) 2.0 % Basophils (%) (Auto) 0.7 % Neutrophils # (Auto) 9.5 TH/MM3 Lymphocytes # (Auto) 1.5 TH/MM3 Monocytes # (Auto) 0.7 TH/MM3 Eosinophils # (Auto) 0.2 TH/MM3 Basophils # (Auto) 0.1 TH/MM3 CBC Comment DIFF FINAL Differential Comment Blood Urea Nitrogen 9 MG/DL Creatinine 0.80 MG/DL Random Glucose 301 MG/DL Calcium Level 8.9 MG/DL Sodium Level 136 MEQ/L Potassium Level 4.4 MEQ/L Chloride Level 105 MEQ/L Carbon Dioxide Level 23.1 MEQ/L Anion Gap 8 MEQ/L Estimat Glomerular Filtration Rate 82 ML/MIN [facility] Medical Record Reviewed: Yes Supervised Visit with NISREEN: Yes Diagnosis Primary Impression: Cellulitis and abscess of neck Referrals: Primary Care Physician Patient Instructions: General Instructions, Cellulitis (ED) Departure Forms: Tests/Procedures Additional Instruction: Warm compresses to the affected area Do not squeeze the affected area Follow-up with a primary care provider Continue your Bactrim. Start clindamycin today Yogurt with live cultures, or probiotic may help to reduce GI upset Return immediately with acute worsening symptoms Scripts Clindamycin (Clindamycin) 150 Mg Cap 300 MG PO Q6H for Infection for 10 Days, #80 CAP 0 Refills Prov: Nuria Rome 03/30/18 Disposition: 01 DISCHARGE HOME Condition: Stable Jorge Pritchard MD March 30, 2018 15:31
== END 2018-03-30 14:22 | disposition home or self-care (01) ==
LOC: NEPC 10:57
DX: L03.221 Cellulitis of neck (principal); L02.11 Cutaneous abscess of neck; F17.200 Nicotine dependence, unspecified, uncomplicated; E11.9 Type 2 diabetes mellitus without complications; Z79.4 Long term (current) use of insulin
CPT/HCPCS: 70491; 80048; 85025; 87040; 96374; 99284; J1885; Q9967